=== PATIENT | female | born 1980 | race Caucasian/White ===

== ENCOUNTER 2021-05-29 18:50 | Emergency (ER) | payer OTHER ==
[~2021-05-29] VITALS: Ht 157.5 cm; Wt 115.7 kg
[2021-05-29] MEDS ORDERED: BRILINTA60 MG PO (19:00)
[2021-05-29] MEDS ORDERED: TOPROL XL25 MG PO (19:03)
[2021-05-29] MEDS ORDERED: NITROGLYCERIN0.3 M1 SUBLING (19:03)
[2021-05-29] MEDS ORDERED: ASA81BEC PO (19:03)
[2021-05-29] MEDS ORDERED: ZESTRIL5 MG PO (19:04)
[2021-05-29] MEDS ORDERED: LIPITOR 20 MG T20 M1 PO (19:04)
[2021-05-29] MEDS ORDERED: SERTRALINE HCL100 MG PO (19:04)
[2021-05-29] MEDS ORDERED: LISINOPRIL20 MG PO (19:05)
[2021-05-29 20:06] LABS: ABSOLUTE BASOPHILS 0.1 thou/uL (0.0-0.2); ABSOLUTE EOSINOPHILS 0.1 thou/uL (0.0-0.7); ABSOLUTE LYMPHOCYTES 3.1 thou/uL (0.8-5.3); ABSOLUTE MONOCYTES 1.4 thou/uL (0.0-1.2); ABSOLUTE NEUTROPHILS 15.1 thou/uL (1.6-8.1); BASOPHILS 0.7 %; EOSINOPHILS 0.6 %; HEMATOCRIT 37.7 % (37.0-47.0); HEMOGLOBIN 12.8 gm/dL (12.0-15.0); LYMPHOCYTES 15.6 %; MCH 30.1 pg (26.0-34.0); MCHC 33.8 g/dL (28.0-37.0); MPV 8.1 fl. (7.2-11.1); NUCLEATED RBCS 0 /100WBC; PLATELET COUNT* 305 thou/uL (150-400); POLYS 76.1 %; RBC 4.24 mil/uL (4.20-5.00); RDW-CV 14.2 % (10.5-14.5); WBC 19.8 thou/uL (4.0-11.0)
[2021-05-29 20:11] LABS: CALCIUM 9.1 mg/dL (8.5-10.1); CREATININE 0.8 mg/dL (0.6-1.3); POTASSIUM 3.6 mmol/L (3.5-5.1)
[2021-05-29 20:15] LABS: ALBUMIN 3.8 g/dL (3.4-5.0); TOTAL BILIRUBIN 0.6 mg/dL (<0.1-1.0); TOTAL PROTEIN 7.9 g/dL (6.4-8.2)
[2021-05-29 20:16] LABS: APTT 30.2 Seconds (25.0-31.3); INR 1.1; PROTIME 11.4 Seconds (9.20-11.50)
[2021-05-29 22:06] LABS: URINE BILIRUBIN NEGATIVE (Negative); URINE BLOOD NEGATIVE (Negative); URINE CLARITY CLEAR; URINE COLOR YELLOW; URINE GLUCOSE-RANDOM NEGATIVE (Negative); URINE KETONES TRACE (Negative); URINE LEUKOCYTES-REFLEX NEGATIVE (Negative); URINE NITRITE-REFLEX NEGATIVE (Negative); URINE PROTEIN NEGATIVE (Negative); URINE SPECIFIC GRAVITY >= 1.030 (1.005-1.030); URINE UROBILINOGEN 0.2 E.U./dl (0.2-1.0)
[2021-05-29 22:25] VITALS: BP 113/63
--- NOTE | 2021-05-30 11:48 | EKG ---
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
== END 2021-05-29 22:25 | disposition home or self-care (01) ==
LOC: M.ERS 18:50
PROVIDERS: Personal Emergency Response Attendant
DX: I25.10 Atherosclerotic heart disease of native coronary artery without angina pectoris (principal); Z20.822 Contact with and (suspected) exposure to COVID-19; I10 Essential (primary) hypertension; M79.602 Pain in left arm